=== PATIENT | male | born 1995 | race Caucasian/White ===

== ENCOUNTER 2025-05-07 16:17 | Emergency (ER) | payer BC ==
[~2025-05-07] VITALS: Ht 182.9 cm; Wt 66.0 kg
[~2025-05-07 16:17] MED LIST: LAMICTAL25 MG PO
[2025-05-07] MEDS ORDERED: LAMOTRIGINE200 MG (16:42)
[2025-05-07] MEDS ORDERED: ASPIRIN/ACETAMINOPHEN/CAFFEINE 1 TAB TAB PO ONE (17:15)
[2025-05-07] MEDS ORDERED: KETOROLAC TROMETHAMINE 30 MG/ML VIAL IV ONE (17:30)
[2025-05-07] MEDS ORDERED: SODIUM CHLORIDE 0.9% 1,000 ML IV PRN (17:30)
[2025-05-07] MEDS ORDERED: BUTALB/ACETAMINOPHEN/CAFFEINE 1 EACH CAP PO ONE (19:00)
[2025-05-07] MEDS ORDERED: BUTALB-ACETAMI1 EACH PO (19:17)
[2025-05-07 19:28] VITALS: BP 120/65
== END 2025-05-07 19:25 | disposition home or self-care (01) ==
LOC: ED 16:17
DX: R56.9 Unspecified convulsions (principal)
CPT/HCPCS: 96374; 96375; 99284-25; J1885; J2405; J7030